=== PATIENT | female | born 1940 | race Caucasian/White ===

== ENCOUNTER → 2025-02-05 12:44 | Outpatient (REF) | payer MEDICARE, BC, SELFPAY | LOC: HWRAD 12:44 | PROVIDERS: ATTENDING PHYSICIAN Podiatrist Foot & Ankle Surgery; FAMILY PHYSICIAN Internal Medicine | DX: M15.0 Primary generalized (osteo)arthritis (principal); M20.42 Other hammer toe(s) (acquired), left foot | CPT/HCPCS: 73630 ==